=== PATIENT | female | born 1970 | race Caucasian/White ===

== ENCOUNTER 2019-07-31 05:42 | Emergency (ER) | payer BC, MEDICAID ==
[2019-07-31 06:01] VITALS: O2SAT 97
[2019-07-31 06:25] LABS: BASOPHIL % 0.1 % (0.0-0.4); Basophil (Absolute #) 0.01 (0-0.4); Eosinophil % 2.3 % (0.00-5.0); Eosinophil (Absolute #) 0.19 (0-0.5); Granulocyte Absolute (ANC) 5.67 (1.4-6.9); Granulocytes % 68.4 % (36.0-66.0); Hematocrit 39.9 % (35-47); Hemoglobin 13.4 gm/dl (12.0-16.0); Lymphocyte (Absolute #) 1.59 (1.0-4.6); Lymphocytes % 19.2 % (24.0-44.0); Mean Cell Volume 101.5 fl (78-100); Mean Corpuscular Hgb Concent. 33.6 g/dl (32-36); Monocyte (Absolute #) 0.83 (0.0-1.3); Platelet Count 238 K/mm3 (150-450); Red Blood Count 3.93 M/mm3 (4.1-5.4); Red Cell Distribution Width 13.2 % (11.5-14.0); White Blood Count 8.3 K/mm3 (4.0-10.5)
--- NOTE | 2019-07-31 06:29 | ERPHSYRPT ---
- History of Present Illness Time Seen by Provider: 07/31/19 06:10 Source: patient Exam Limitations: no limitations Patient Subjective Stated Complaint: overdose Triage Nursing Assessment: Patient ambulated into ED and transferred self to bed. Patient A+O X3. Patient's skin pink and sweaty. Patient here due to uncontrollable movements to BLE and confusion. Patient's finance states patient took 4 Bupropion Hydrochloride prior to going to bed around 2200 so patient could sleep due to back pain. Patient woke up around 0100 and took 4 more of the same medication. Patient's finance unknown of dose. Patient denies suicidal of self harm. Physician History: Abnormal movements bilateral lower extremities and confusion after taking 8 total of Wellbutrin 150mg XL to sleep as she had increasing back pain in the evening of 07/30/2019. First 4 taken was at 22:00 on 07/30/2019, then 4 more taken at 01:00 on 07/31/2019. Timing/Duration: yesterday Method of Injury: other (no trauma history) Quality: aching Back Pain Location: lumbar spine Severity of Pain-Max: severe Severity of Pain-Current: mild Modifying Factors: Improves With: movement (worsen) Associated Symptoms: lower back pain, No fever, No chills, No sweating, No urinary incontinence, No loss of bowel control, No constipation, No nausea, No vomiting, No problems urinating, No light-headedness, No dizziness, No numbness in legs/feet, No weakness, No sensory/motor loss, No tingling in legs/feet, No muscle spasms Previous symptoms: same symptoms as today Allergies/Adverse Reactions: Penicillins Allergy (Mild, Verified 07/31/19 05:52) Hives codeine Allergy (Verified 07/31/19 05:52) Hx Tetanus, Diphtheria Vaccination/Date Given: Yes Hx Influenza Vaccination/Date Given: No Hx Pneumococcal Vaccination/Date Given: No Immunizations Up to Date: Yes - Review of Systems Constitutional: No Fever, No Chills Eyes: No Photophobia, No Vision Changes Ears, Nose, & Throat: No Nose Congestion, No Painful Swallowing Respiratory: No Cough, No Dyspnea Cardiac: No Chest Pain, No Edema, No Syncope Abdominal/Gastrointestinal: No Abdominal Pain, No Nausea, No Vomiting, No Diarrhea, No Hematemesis, No Hematochezia, No Melena Genitourinary Symptoms: No Dysuria, No Hematuria, No Flank Pain Musculoskeletal: Back Pain, No Neck Pain Skin: No Rash Neurological: Lethargy, Tics, No Dizziness, No Focal Weakness, No Headache, No Parasthesia, No Seizure, No Sensory Changes, No Tremors Psychological: Drug Abuse, No Suicidal Ideations, No Homicidal Ideations, No Emotional Lability, No Hallucinations Endocrine: No Polydipsia, No Excessive Sweating Hematologic/Lymphatic: No Easy Bleeding, No Easy Bruising All Other Systems: Reviewed and Negative - Past Medical History Pertinent Past Medical History: Yes Neurological History: Migraines ENT History: No Pertinent History Cardiac History: No Pertinent History Respiratory History: No Pertinent History Endocrine Medical History: No Pertinent History Musculoskeletal History: Fibromyalgia, Rheumatoid Arthritis, Other GI Medical History: No Pertinent History History: No Pertinent History Psycho-Social History: Depression Female Reproductive Disorders: No Pertinent History - Past Surgical History Past Surgical History: No Neuro Surgical History: No Pertinent History Cardiac: No Pertinent History Respiratory: No Pertinent History Gastrointestinal: No Pertinent History Genitourinary: No Pertinent History Musculoskeletal: No Pertinent History Female Surgical History: No Pertinent History - Social History Smoking Status: Current every day smoker How long have you smoked: 10 years Exposure to second hand smoke: No Drug Use: none Patient Lives Alone: No - Female History Hx Last Menstrual Period: Depo shot Hx Now: No - Nursing Vital Signs Nursing Vital Signs: Initial Vital Signs Temperature 98.5 F 07/31/19 05:53 Pulse Rate 97 H 07/31/19 05:53 Respiratory Rate 18 07/31/19 05:53 Blood Pressure 161/93 07/31/19 05:53 O2 Sat by Pulse Oximetry 97 07/31/19 05:53 Pain Scale Pain Intensity 0 - Physical Exam General Appearance: no apparent distress, alert Eye Exam: PERRL/EOMI, eyes nml inspection Ears, Nose, Throat Exam: normal ENT inspection, pharynx normal, No pharyngeal erythema, No tonsillar exudate Neck Exam: normal inspection, non-tender, supple, full range of motion, No meningismus, No midline tenderness Respiratory Exam: normal breath sounds, lungs clear, No respiratory distress, No crackles/rales, No rhonchi, No wheezing Cardiovascular Exam: regular rate/rhythm, normal heart sounds, normal peripheral pulses, capillary refill <2 sec Gastrointestinal Exam: soft, No tenderness, No mass Back Exam: No CVA tenderness, No vertebral tenderness Extremity Exam: normal inspection, normal range of motion, pelvis stable, No calf tenderness, No pedal edema Neurologic Exam: alert, oriented x 3, cooperative, 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, normal mood/affect, nml station & gait, sensation nml, No motor deficits Skin Exam: normal color, warm, dry, No rash, No cyanosis Lymphatic Exam: No adenopathy SpO2 Interpretation: normal SpO2: 97 O2 Delivery: Room Air - Course Nursing assessment & vital signs reviewed: Yes EKG Interpreted by Me: RATE (88), Sinus Rhythm, NORMAL AXIS, NORMAL INTERVALS, NORMAL QRS, NORMAL ST-T - Radiology Exams L-Spine X-ray Interpretation: No Fracture Ordered Tests: Active Orders 24 hr Category Date Time Status Porcelain Waxer STAT Care 07/31/19 06:19 Ordered IV Insertion STAT Care 07/31/19 06:18 Ordered NPO (ED) STAT Care 07/31/19 06:18 Ordered ACETAMINOPHEN Stat Lab 07/31/19 06:18 Ordered CBC W DIFF Stat Lab 07/31/19 06:18 Ordered CMP Stat Lab 07/31/19 06:18 Ordered ETHYL ALCOHOL Stat Lab 07/31/19 06:18 Ordered HCG,QUALITATIVE URINE Stat Lab 07/31/19 06:19 Uncollected Lactic Acid Stat Lab 07/31/19 06:18 Ordered MAGNESIUM Stat Lab 07/31/19 06:21 Ordered PROTIME WITH INR Stat Lab 07/31/19 06:18 Ordered SALICYLATE Stat Lab 07/31/19 06:18 Ordered UA W/RFX UR CULTURE Stat Lab 07/31/19 06:19 Uncollected Urine Triage Profile Stat Lab 07/31/19 06:19 Uncollected VENOUS BLOOD GAS Stat Lab 07/31/19 06:18 Ordered Lab/Rad Data: Laboratory Result Diagrams 07/31/19 06:18 Laboratory Results 07/31/19 07/31/19 07/31/19 Range/Units 06:18 06:18 06:18 WBC (4.0-10.5) K/mm3 RBC (4.1-5.4) M/mm3 Hgb (12.0-16.0) gm/dl Hct (35-47) % MCV (78-100) fl MCH (26-32) pg MCHC (32-36) g/dl RDW (11.5-14.0) % Plt Count (150-450) K/mm3 MPV (6-9.5) fl Gran % (36.0-66.0) % Eos # (Auto) (0-0.5) Absolute Lymphs (auto) (1.0-4.6) Absolute Monos (auto) (0.0-1.3) Lymphocytes % (24.0-44.0) % Monocytes % (0.0-12.0) % Eosinophils % (0.00-5.0) % Basophils % (0.0-0.4) % Absolute Granulocytes (1.4-6.9) Basophils # (0-0.4) PT 10.1 (9.95-12.35) SECONDS INR 0.90 (0.8-3.0) pO2/FiO2 Ratio 21.0 % VBG pH 7.41 (7.32-7.42) VBG pCO2 at Pat Temp 41 L (42-55) mm/Hg VBG pO2 at Pat Temp 41 H (25-40) mm/Hg VBG HCO3 26.0 (22-28) meq/L VBG O2 Sat (Viral) 85.2 L (95-100) VBG Base Excess 1.2 (-2.0-2.0) VBG Hemoglobin 13.6 VBG Carboxyhemoglobin 4.5 (0.0-6.9) % T HGB POC Potassium 3.2 L (3.5-5.1) Lactic Acid 1.4 (0.4-2.0) Magnesium 1.6 (1.6-2.3) mg/dL 07/31/19 Range/Units 06:18 WBC 8.3 (4.0-10.5) K/mm3 RBC 3.93 L (4.1-5.4) M/mm3 Hgb 13.4 (12.0-16.0) gm/dl Hct 39.9 (35-47) % MCV 101.5 H (78-100) fl MCH 34.0 H (26-32) pg MCHC 33.6 (32-36) g/dl RDW 13.2 (11.5-14.0) % Plt Count 238 (150-450) K/mm3 MPV 10.0 H (6-9.5) fl Gran % 68.4 H (36.0-66.0) % Eos # (Auto) 0.19 (0-0.5) Absolute Lymphs (auto) 1.59 (1.0-4.6) Absolute Monos (auto) 0.83 (0.0-1.3) Lymphocytes % 19.2 L (24.0-44.0) % Monocytes % 10.0 (0.0-12.0) % Eosinophils % 2.3 (0.00-5.0) % Basophils % 0.1 (0.0-0.4) % Absolute Granulocytes 5.67 (1.4-6.9) Basophils # 0.01 (0-0.4) PT (9.95-12.35) SECONDS INR (0.8-3.0) pO2/FiO2 Ratio % VBG pH (7.32-7.42) VBG pCO2 at Pat Temp (42-55) mm/Hg VBG pO2 at Pat Temp (25-40) mm/Hg VBG HCO3 (22-28) meq/L VBG O2 Sat (Viral) (95-100) VBG Base Excess (-2.0-2.0) VBG Hemoglobin VBG Carboxyhemoglobin (0.0-6.9) % T HGB POC Potassium (3.5-5.1) Lactic Acid (0.4-2.0) Magnesium (1.6-2.3) mg/dL - Progress Progress: unchanged Progress Note: 07/31/19 06:28 Spoke with Poison Control. They recommended lab evaluation, EKG, monitoring for 24 hours. patient is to use benzodiazepines first-line to help with agitation, tremors, and seizures. He may also use barbiturates such as phenobarbital load 10-20 mg per kilogram. 07/31/19 07:00 Patient decided to leave against medical advice. The patient was of sound mind when she made the decision. The patient and her significant other had the opportunity to ask questions and all questions were answered for them. The patient states that she feels fine and does not want to stay in the hospital. 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 She understands the risks and benefits of being observed per poison control's recommendations, including treatment for any seizures or any potential arrhythmias. Patient understands the risks of going home such as status epilepticus and QT prolongation rate causing arrhythmias that may potentially both lead to . Patient and her significant other understand that they may return back to the emergency department at any time for immediate reevaluation. Patient denies any suicidal or homicidal ideation, denies any visual or auditory hallucinations, or any other uncontrollable postures or movements. Counseled pt/family regarding: drug and/or alcohol abuse, lab results, diagnosis , need for follow-up - Departure Departure Disposition: In-patient Admission, AMA (Patient decided to leave against medical advice. the patient was of sound mind when she made the decision. The patient and her significant other had the opportunity to ask questions and all questions were answered for them. The patient states that she feels fine and does not want to stay in the hospital. She understands the risks and benefits of being observed per poison control's recommendations, including treatment for any seizures or any potential arrhythmias. Patient understands the risks of going homesuch as status epilepticus and QT prolongation rate causing arrhythmias that may potentially both lead to . patient and her significant other understand that they may return back to the emergency department at any time for immediate reevaluation. Patient denies any suicidal or homicidal ideation, denies any visual or auditory hallucinations , or any other uncontrollable postures or movements.) Clinical Impression: Elevated blood pressure reading without diagnosis of hypertension, CKD ( chronic kidney disease) stage 3, GFR 30-59 ml/min Bupropion overdose Qualifiers: Encounter type: initial encounter Injury intent: accidental or unintentional Qualified Code(s): T43.291A - Poisoning by other antidepressants, accidental ( unintentional), initial encounter Condition: Fair Critical Care Time: No Referrals: NACHO CASEY [Primary Care Provider] - 08/01/19 (Return to the emergency department at any time for immediate reevaluation as you feel needed) Instructions: Accidental Overdose (DC) Forms: Work/School Release Form
[2019-07-31 06:31] LABS: Lactic Acid 1.4 (0.4-2.0); VBG BASE EXCESS 1.2 (-2.0-2.0); VBG CARBOXYHEMOGLOBIN 4.5 % T HGB (0.0-6.9); VBG HEMOGLOBIN 13.6; VBG O2 SATURATION 85.2 (95-100); VBG POTASSIUM 3.2 (3.5-5.1); VBG pH 7.41 (7.32-7.42)
[2019-07-31 06:39] LABS: INR 0.9 (0.8-3.0); PROTIME 10.1 SECONDS (9.95-12.35)
[2019-07-31 06:42] VITALS: BP 143/89; PULSE 93
[2019-07-31 06:52] LABS: ALBUMIN 4.2 g/dL (3.5-5.0); ALKALINE PHOSPHATASE 79 U/L (38-126); ANION GAP 15.3 MEQ/L (5-15); BLOOD UREA NITROGEN 18 mg/dL (7-17); CHLORIDE 107 mmol/L (98-107); Calcium 10.1 mg/dL (8.4-10.2); Carbon Dioxide 24 mmol/L (22-30); Glucose 96 mg/dL (74-106); Potassium 3.5 mmol/L (3.5-5.1); SGOT/AST 20 U/L (14-36); SGPT/ALT 11 U/L (0-35); SODIUM 143 mmol/L (137-145); Total Protein 7.2 g/dL (6.3-8.2)
[2019-07-31 06:54] LABS: ACETAMINOPHEN < 10 ug/ml (10-30); ETHYL ALCOHOL < 10 mg/dL (0-10); SALICYLATE < 1.0 mg/dL (2-20)
== END 2019-07-31 07:07 | disposition left against medical advice (07) ==
LOC: ED 05:42
DX: R03.0 Elevated blood-pressure reading, without diagnosis of hypertension (principal); N18.9 Chronic kidney disease, unspecified; T43.291A Poisoning by other antidepressants, accidental (unintentional), initial encounter
CPT/HCPCS: 36000; 36415; 70450; 80053; 80307; 81001; 82805; 83605; 83735; 85025; 85610; 87086; 93005; 93041; 96360; 99284; G0481; G0480

== ENCOUNTER 2019-07-31 11:59 | Emergency (ER) | payer MEDICAID ==
[2019-07-31 12:22] VITALS: BP 160/99; PULSE 95; O2SAT 96
[2019-07-31] MEDS ORDERED: Sodium Chloride 0.9% 1000 ML 1,000 ML ONE ×2 (12:41→13:19)
[2019-07-31] MEDS ORDERED: Sodium Chloride 0.9% 1000 ML 1,000 ML IV STA (13:14)
--- NOTE | 2019-07-31 13:25 | ERPHSYRPT ---
- History of Present Illness Time Seen by Provider: 07/31/19 12:20 Source: patient, family Patient Subjective Stated Complaint: Pt took 4 Wellbutrin at 2200 last night and then 4 more at 0100, came to this ER this morning and then left AMA, pt has now returned with boyfriend due to being diaphoretic, talking out of her head and not making sense Triage Nursing Assessment: Pt is awake and is not oriented, unable to state where she is or what day it is, was able to state who the president is, hypertensive, diaphoretic, pulses normal, flat affect, calm, bowel sounds heard in all 4, denies pain, denies N&V, Physician History: 49 y/o white female presents back to ED after leaving AMA this morning. pt had taken 4 wellbutrin last pm and then repeated 4 hours later. this was not pts meds. pt was unable to sleep. she is adamant she is not suicidal and not homicidal then or now. that is why she took the medications, to sleep. pt was experiencing abnl movements, confusion. pt underwent workup. pts case d/w poison control. they recommended EKG, lab work and observation for 24 hours. however, pt left AMA. Timing/Duration: today Severity of Symptoms-Max: moderate Severity of Symptoms-Current: moderate Context related to: other (medications taken) Suicidal thoughts: other (none) Previous symptoms: same symptoms as today Allergies/Adverse Reactions: Penicillins Allergy (Mild, Verified 07/31/19 12:22) Hives codeine Allergy (Verified 07/31/19 05:52) Home Medications: Duloxetine HCl 30 mg [Cymbalta 30 MG Capsule] 30 mg PO DAILY 07/31/19 [ History] Gabapentin 300 mg PO DAILY 07/31/19 [History] Ibuprofen 800 mg PO TID 07/31/19 [History] Hx Tetanus, Diphtheria Vaccination/Date Given: Yes Hx Influenza Vaccination/Date Given: No Hx Pneumococcal Vaccination/Date Given: No - Past Medical History Pertinent Past Medical History: Yes Neurological History: Migraines ENT History: No Pertinent History Cardiac History: No Pertinent History Respiratory History: No Pertinent History Endocrine Medical History: No Pertinent History Musculoskeletal History: Fibromyalgia, Rheumatoid Arthritis, Other GI Medical History: No Pertinent History History: No Pertinent History Psycho-Social History: Depression Female Reproductive Disorders: No Pertinent History - Past Surgical History Past Surgical History: No Neuro Surgical History: No Pertinent History Cardiac: No Pertinent History Respiratory: No Pertinent History Gastrointestinal: No Pertinent History Genitourinary: No Pertinent History Musculoskeletal: No Pertinent History Female Surgical History: No Pertinent History - Social History Smoking Status: Current every day smoker How long have you smoked: 10 years Exposure to second hand smoke: Yes Drug Use: none Patient Lives Alone: No - Female History Hx Now: No (depo) - Review of Systems Constitutional: No Symptoms Eyes: No Symptoms Ears, Nose, & Throat: No Symptoms Respiratory: No Symptoms Cardiac: No Symptoms Abdominal/Gastrointestinal: No Symptoms Genitourinary Symptoms: No Symptoms Musculoskeletal: No Symptoms, Fall (sig other states pt did fall once when she was at home after ama) Skin: No Symptoms Neurological: No Symptoms Psychological: Emotional Lability, Mood Changes, No Suicidal Ideations, No Homicidal Ideations Endocrine: No Symptoms Hematologic/Lymphatic: No Symptoms Immunological/Allergic: No Symptoms All Other Systems: Reviewed and Negative - Nursing Vital Signs Nursing Vital Signs: Initial Vital Signs Temperature 98.8 F 07/31/19 12:07 Pulse Rate 95 H 07/31/19 12:07 Blood Pressure 160/99 07/31/19 12:07 O2 Sat by Pulse Oximetry 96 07/31/19 12:07 Pain Scale Pain Intensity 0 - Physical Exam General Appearance: no apparent distress, alert, anxiety Eyes, Ears, Nose, Throat Exam: normal ENT inspection, moist mucous membranes Neck Exam: normal inspection, non-tender, supple, full range of motion Respiratory Exam: normal breath sounds, lungs clear, airway intact, No chest tenderness, No respiratory distress Cardiovascular Exam: regular rate/rhythm, normal heart sounds, normal peripheral pulses Gastrointestinal/Abdominal Exam: soft, normal bowel sounds, No tenderness Extremities Exam: normal inspection, normal range of motion, evidence of injury , tenderness Current Suicidality: denies suicide plan Neurological Exam: alert, calm, respiratory director II-XII nml as tested, oriented x 3 Appearance: disheveled, impaired insight Behavior/Eye Contact/Speech: alert & cooperative, avoids eye contact Thoughts/Hallucinations: no apparent hallucination Skin Exam: normal color, warm, dry SpO2 Interpretation: normal SpO2: 96 O2 Delivery: Room Air - Course Nursing assessment & vital signs reviewed: Yes EKG Interpreted by Me: RATE, Sinus Rhythm, NORMAL AXIS, NORMAL INTERVALS, NORMAL QRS, Other (no change from comparison ekg dated 07/31/19) Ordered Tests: Active Orders 24 hr Category Date Time Status EKG-ER Only STAT Care 07/31/19 13:14 Active IV Insertion STAT Care 07/31/19 13:14 Active HEAD WITHOUT CONTRAST [CT] Stat Exams 07/31/19 13:16 Completed CULTURE,URINE Stat Lab 07/31/19 13:19 Received UA W/RFX UR CULTURE Stat Lab 07/31/19 13:19 Completed Urine Triage Profile Stat Lab 07/31/19 13:19 Completed Medication Summary Generic Name Dose Route Start Last Admin Trade Name Freq PRN Reason Stop Dose Admin Sodium Chloride 1,000 mls @ 999 mls/hr 07/31/19 13:14 07/31/19 13:23 Sodium Chloride 0.9% 1000 Ml IV 07/31/19 14:14 999 mls/hr .Q1H1M STA Administration Nicotine 14 mg 07/31/19 14:00 Nicoderm Cq 14 Mg TOP 08/30/19 13:59 Q24H PANTERA Discontinued Medications Generic Name Dose Route Start Last Admin Trade Name Freq PRN Reason Stop Dose Admin Sodium Chloride Confirm 07/31/19 12:41 Sodium Chloride 0.9% 1000 Ml Administered 07/31/19 12:42 Dose 1,000 mls @ ud .ROUTE .STK-MED ONE Sodium Chloride Confirm 07/31/19 13:19 Sodium Chloride 0.9% 1000 Ml Administered 07/31/19 13:20 Dose 1,000 mls @ ud .ROUTE .STK-MED ONE Lab/Rad Data: Laboratory Results 07/31/19 07/31/19 Range/Units 13:19 13:19 Urine Color YELLOW (YELLOW) Urine Appearance SLIGHTLY CLOUDY (CLEAR) Urine pH 5.0 (5-6) Ur Specific [place] 1.018 (1.005-1.025) Urine Protein 30 (Negative) Urine Ketones NEGATIVE (NEGATIVE) Urine Blood MODERATE (0-5) Dennis/ul Urine Nitrite POSITIVE (NEGATIVE) Urine Bilirubin NEGATIVE (NEGATIVE) Urine Urobilinogen NEGATIVE (0-1) mg/dL Ur Leukocyte Esterase TRACE (NEGATIVE) Urine WBC (Auto) 6-10 (0-5) /HPF Urine RBC (Auto) 6-10 (0-2) /HPF U Epithel Cells (Auto) RARE (FEW) /HPF Urine Bacteria (Auto) MANY (NEGATIVE) /HPF Urine Mucus (Auto) SLIGHT (NEGATIVE) /HPF Urine Culture Reflexed YES (NO) Urine Glucose NEGATIVE (NEGATIVE) mg/dL Urine Opiates Level NEGATIVE (NEGATIVE) Ur Methadone NEGATIVE (NEGATIVE) Urine Barbiturates NEGATIVE (NEGATIVE) Ur Phencyclidine (PCP) NEGATIVE (NEGATIVE) Urine Amphetamine NEGATIVE (NEGATIVE) U Benzodiazepine Level NEGATIVE (NEGATIVE) Urine Cocaine NEGATIVE (NEGATIVE) Urine Marijuana (THC) NEGATIVE (NEGATIVE) - Progress Progress: re-examined Progress Note: 07/31/19 14:14 as pt became more awake and alert, she became more agitated. pt is wanting to smoke. she states if she cannot smoke, she is leaving. it is her right she said. i ordered a nicotine patch. pts sig other attempted to keep patient here. pt is less confused. she was getting up and out of bed on her own and ambulating fine. i reviewed the recommendation of the poison control center. pt is refusing any further treatment, admission or transfer. she and sig other were again advised of the risks of worsening condition including seizures or . pt is alert and not confused. she signed AMA form and left with test results pending. - Departure Departure Disposition: AMA Clinical Impression: Medication overdose, UTI (urinary tract infection) Condition: Fair Critical Care Time: No Referrals: NACHO CASEY [Primary Care Provider] -
[2019-07-31 13:56] LABS: Appearance SLIGHTLY CLOUDY (CLEAR); Bacteria MANY /HPF (NEGATIVE); Bilirubin NEGATIVE (NEGATIVE); Blood MODERATE Ery/ul (0-5); Epithelial Cells RARE /HPF (FEW); Glucose NEGATIVE (NEGATIVE); Ketones NEGATIVE (NEGATIVE); Leukocyte Esterase TRACE (NEGATIVE); Mucus SLIGHT /HPF (NEGATIVE); Nitrite POSITIVE (NEGATIVE); Protein,Urine Dip 30 (Negative); Specific Gravity 1.018 (1.005-1.025); Urobilinogen NEGATIVE mg/dL (0-1)
[2019-07-31] MEDS ORDERED: NICODERM CQ 14 MG TOP SCH (14:00)
[2019-07-31 14:01] LABS: Amphetamine,Urine NEGATIVE (NEGATIVE); Barbiturate,Urine NEGATIVE (NEGATIVE); Benzodiazepine,Urine NEGATIVE (NEGATIVE); Cocaine,Urine NEGATIVE (NEGATIVE); Methadone,Urine NEGATIVE (NEGATIVE); Opiate,Urine NEGATIVE (NEGATIVE); PCP,Urine NEGATIVE (NEGATIVE); THC,Urine NEGATIVE (NEGATIVE)
--- NOTE | 2019-07-31 14:01 | XRAY ---
Indication: Altered mental status. Ingested unknown medication. Multiple contiguous axial images obtained through the head without contrast. Comparison: None Normal appearing brain parenchyma, ventricles, and bony calvarium. Visualized paranasal sinuses and mastoid air cells are clear. Impression: Normal CT head without contrast exam. CTDI 69.79
== END 2019-07-31 14:00 | disposition left against medical advice (07) ==
LOC: ED 11:59
DX: T43.291A Poisoning by other antidepressants, accidental (unintentional), initial encounter (principal); N39.0 Urinary tract infection, site not specified
CPT/HCPCS: 36000; 70450; 80307; 81001; 87086; 87186; 93005; 96360; 99284